=== PATIENT | male | born 1955 | race Hispanic/Latino ===

== ENCOUNTER 2018-05-28 05:39 | Day surgery (SDC) | payer OTHER, SELFPAY ==
[2018-05-27 17:30] VITALS: BMI 32.5
[2018-05-28] MEDS ORDERED: Lidocaine 1% PF 5 ML VIAL ONE (10:34)
[2018-05-28] MEDS ORDERED: PROPOFOL 200 MG/20 ML VIAL ONE (10:34)
--- NOTE | 2018-05-28 10:38 | OP ---
DATE OF PROCEDURE: 05/28/2018 PROCEDURE PERFORMED: Colonoscopy. PREMEDICATION: Given by the Anesthesiology Department. PREPROCEDURE DIAGNOSES: Rectal polyp, villous adenoma with focal severe dysplasia. POSTPROCEDURE DIAGNOSES: 1. Large 5 x 7 cm flat polyp involving the rectum, 3 cm from the anal verge, not amenable to endoscopic removal. 2. Otherwise, normal colon exam. DESCRIPTION OF PROCEDURE: Written consents were obtained prior to procedure. After adequate sedation, rectal exam was performed and was normal. There was no palpable mass with digital exam. The endoscope was advanced to the cecum. The quality of the bowel prep was good. The cecum, ascending colon, hepatic flexure, transverse colon, splenic flexure, and descending colon appeared normal. A flat area of inflamed fold was noted in the sigmoid colon. There were no diverticula seen. The rectosigmoid colon appeared normal. In the rectal vault, a 5 x 7 cm flat polyp with villous morphology was seen. There were no stigmata of bleeding. The distal edge of the polyp is approximately 3 cm from the anal verge. Because of the large flat size involving large surface area, the polyp was not amenable to endoscopic removal. Retroflexion did not show any abnormality. Biopsy was not taken as the polyp was previously biopsied. The endoscope was removed. The patient tolerated the procedure well. ASSESSMENT: Large rectal vault polyp, 3 cm from the anal verge. RECOMMENDATIONS: Transanal excision attempt. Job ID: [id number] MTDD
[2018-05-28] MEDS ORDERED: GoLYTELY 4,000 ml Bottle PO ONE (11:15)
== END 2018-05-28 11:10 | disposition home or self-care (01) ==
LOC: CANPRESDC → SDC 05:39
PROVIDERS: ATTEND Internal Medicine Gastroenterology
PROC: 0DJD8ZZ Inspection of Lower Intestinal Tract, Via Natural or Artificial Opening Endoscopic (ICD-10-PCS; principal; 2018-05-28)
DX: K62.1 Rectal polyp (principal); K59.00 Constipation, unspecified; K21.9 Gastro-esophageal reflux disease without esophagitis; E66.3 Overweight; Z68.32 Body mass index [BMI] 32.0-32.9, adult; Z86.010 Personal history of colon polyps; Z98.890 Other specified postprocedural states
CPT/HCPCS: J2001; J2704

== ENCOUNTER 2018-05-30 10:50 | Outpatient (CLI) | payer SELFPAY ==
[2018-05-30 13:26] LABS: #Eosinphils 0.3 thou/uL (0.0-0.7); #Lymphocytes 1.8 thou/uL (1.20-3.40); #Monocytes 0.3 thou/uL (0.11-0.59); #Neutrophils 1.7 thou/uL (1.40-6.50); %Basophils 0.6 % (0.0-1.0); %Eosinophils 6.3 % (0.0-10.0); %Lymphocytes 44.4 % (21.0-51.0); %Monocytes 7.4 % (0.0-10.0); %Neutrophils 41.4 % (42.0-75.0); Hemoglobin 13.9 g/dL (14.0-18.0); Mean Corpuscular HGB CONC 32.9 g/dL (32.0-36.0); Mean Corpuscular Hemoglobin 30.4 pg (27.0-31.0); Mean Corpuscular Volume 92.3 fL (78.0-98.0); Mean Platelet Volume 8.3 fL (7.4-10.4); Platelet Count 205 thou/uL (130-400); RBC Distribution Width 12.4 % (11.5-14.5); Red Blood Cell (RBC) Count 4.56 mill/uL (4.70-6.10)
[2018-05-30 13:44] LABS: Anion Gap 14 mmol/L (10-20); BUN (Urea Nitrogen) 16 mg/dL (8.4-25.7); Calc. Creatinine Clearance 0 mL/min (70-130); Calcium 9.7 mg/dL (7.8-10.44); Carbon Dioxide 25 mmol/L (23-31); Chloride 104 mmol/L (98-107); Estimated GFR-MDRD 72; Glucose 90 mg/dL (80-115); Potassium 4.1 mmol/L (3.5-5.1); Sodium 139 mmol/L (136-145)
== END 2018-05-30 10:51 | disposition home or self-care (01) ==
LOC: LABBT 10:50
PROVIDERS: ATTEND Surgery
DX: Z01.812 Encounter for preprocedural laboratory examination (principal); D12.6 Benign neoplasm of colon, unspecified
CPT/HCPCS: 80048; 85025

== ENCOUNTER 2018-06-12 05:46 | Day surgery (SDC) | payer SELFPAY ==
[2018-05-30 11:11] VITALS: BMI 37.8
[2018-06-12] MEDS ORDERED: Bupivacaine HCl 0.5%/Epinephrine 1:200,000/PF 30 ml Vial ONE (06:45)
[2018-06-12] MEDS ORDERED: Lidocaine 2% PF 5 ML VIAL ONE (07:09)
[2018-06-12] MEDS ORDERED: cefOXitin Sodium/Dextrose,Iso 2 GM in Premix Bag 1 BAG IVPB SCH (07:15)
[2018-06-12] MEDS ORDERED: Midazolam HCl 2 mg/2 ml Vial ONE (07:50)
[2018-06-12] MEDS ORDERED: Fentanyl 250 MCG/5 ML VIAL ONE (08:07)
[2018-06-12] MEDS ORDERED: Lidocaine 2% Jelly 5 ML TUBE ONE (09:36)
[2018-06-12] MEDS ORDERED: Ketorolac Tromethamine 30 MG/ML VIAL ONE (10:19)
[2018-06-12] MEDS ORDERED: HYDROcodone/Acetaminophen 5/325 mg Tablet ONE (12:03)
[2018-06-12] MEDS ORDERED: Ondansetron PF 4 MG/2 ML Vial ONE (13:40)
[2018-06-12] MEDS ORDERED: Dexamethasone 20 MG/5 ML VIAL ONE (13:40)
[2018-06-12] MEDS ORDERED: PROPOFOL 200 MG/20 ML VIAL ONE (13:40)
[2018-06-12] MEDS ORDERED: Rocuronium Bromide 10 MG/ML (10ML VIAL) ONE (13:40)
--- NOTE | 2018-06-15 17:43 | OP ---
DATE OF PROCEDURE: 06/12/2018 PREOPERATIVE DIAGNOSIS: Rectal polyp. POSTOPERATIVE DIAGNOSIS: Rectal polyp. PROCEDURE PERFORMED: Transanal excision of a 3 cm rectal polyp. GYMNASTIC COACH: Dr. Marisela Estrada. ANESTHESIA: General endotracheal. INDICATIONS: The patient is a 63-year-old male. He had been found on recent colonoscopy to have a large rectal polyp that was colonoscopically unresectable. This was noted to be palpable on rectal examination and transanal resection was recommended. DESCRIPTION OF PROCEDURE: Informed consent was obtained. The patient was taken to the operating room, where general endotracheal anesthesia was obtained with the patient in supine position. Perianal area was trimmed of hair, prepped with Betadine and draped in sterile fashion. Local anesthetic was infiltrated in a 4-quadrant intersphincteric fashion using 0.25% Marcaine with epinephrine. Digital rectal examination revealed that the anus was relatively snug. At the point that it was dilated to 2 fingerbreadths, it was noted to be a tear in the skin creating anal fissure both anteriorly and posteriorly. The anus was dilated adequately to allow internal inspection. The bivalve rectal speculum was utilized. This clearly revealed the polyp on the right lateral aspect of the rectum. His anal opening was small enough and the polyp was in far enough that it made visualization, resection, and repair challenging. I was able to clearly visualize the lesion and it was grasped with a Marty clamp. Submucosal injection of additional 0.25% Marcaine with epinephrine was made. Stay sutures were placed both on the proximal and distal aspects of the polyp using 3-0 Vicryl. The polyp was very friable and fell apart as it was being grasped. I was able to visualize the interface between the polyp and normal rectal mucosa and scored this circumferentially with electrocautery. I subsequently completed the resection in a partial-thickness fashion using electrocautery. The specimen was removed intact and passed off the field. The defect was closed transversely using running locking suture of 3-0 Vicryl. The stay sutures assisted in visualization of the defect. After the lesion was closed and the stay sutures were trimmed, digital examination revealed a palpable closed defect in the right lateral aspect of the rectum with a patent lumen beyond this. There were no complications. Blood loss was minimal and actually was more from the fissure then from the excision site. Dry gauze dress was placed externally. Gel-Foam with lidocaine gel was placed internally, and mesh pants were placed. There were no complications. The patient tolerated the procedure well and was taken to recovery room in stable condition. Job ID: [id number]
== END 2018-06-12 14:18 | disposition home or self-care (01) ==
LOC: SDC 05:46
PROVIDERS: ATTEND Surgery
PROC: 0DBP7ZZ Excision of Rectum, Via Natural or Artificial Opening (ICD-10-PCS; principal; 2018-06-12)
DX: D12.8 Benign neoplasm of rectum (principal)
CPT/HCPCS: 88305; J0670; J1100; J1885; J2001; J2250; J2405; J2704; J3010